=== PATIENT | female | born 1970 | race American Indian/Alaskan Native ===

== ENCOUNTER 2018-12-23 19:26 | Emergency (ER) | payer SELFPAY ==
[2018-12-23 21:02] LABS: Basophils % (Auto) 0.7 % (0.0-1.8); Eosinophils # (Auto) 0.5 K/mm3 (0.0-0.4); Eosinophils % (Auto) 8.2 % (0.0-4.3); Hematocrit 38.4 % (30.3-42.9); Hemoglobin 11.8 gm/dl (10.1-14.3); Lymphocytes # (Auto) 2.7 K/mm3 (1.2-5.4); Lymphocytes % (Auto) 42.3 % (13.4-35.0); Mean Corpuscular HGB Conc 31 % (30-34); Mean Corpuscular Volume 77 fl (79-97); Monocytes # (Auto) 0.4 K/mm3 (0.0-0.8); Monocytes % (Auto) 6.1 % (0.0-7.3); Platelet Count 301 K/mm3 (140-440); Red Blood Count 5.01 M/mm3 (3.65-5.03); Red Cell Distribution Width 18.9 % (13.2-15.2)
[2018-12-23 21:15] VITALS: BP 176/104
[2018-12-23] MEDS ORDERED: DELTASONE PO STA (21:16)
[2018-12-23] MEDS ORDERED: DUONEB *Not for PRN Use IH STA (21:16)
[2018-12-23] MEDS ORDERED: TYLENOL/CODEINE PO STA (21:16)
[2018-12-23 21:22] LABS: BUN/Creatinine Ratio 6; Blood Urea Nitrogen 5 mg/dL (7-17); Calcium 8.7 mg/dL (8.4-10.2); Hemolysis Index 53
[2018-12-23] MEDS ORDERED: ZOFRAN ODT PO ONE (22:52)
[2018-12-23] MEDS ORDERED: ZOFRAN ODT ONE (22:55)
--- NOTE | 2018-12-24 00:21 | XRay Report ---
CHEST 2 VIEWS INDICATION / CLINICAL INFORMATION: SOB, WEAKNESS, PRODUCTIVE COUGH. COMPARISON: None available. FINDINGS: SUPPORT DEVICES: None. HEART / MEDIASTINUM: No significant abnormality. LUNGS / PLEURA: No significant pulmonary or pleural abnormality. No pneumothorax. ADDITIONAL FINDINGS: No significant additional findings. IMPRESSION: 1. No acute findings. Signer Name: Reginaldo Ordonez MD Signed: 12/24/2018 12:17 AM Workstation Name: [id number]
--- NOTE | 2018-12-24 00:58 | Emergency Department Report ---
ED General Adult HPI - General Chief complaint: Dyspnea/Respdistress Stated complaint: SOB/COUGH Time Seen by Provider: 12/23/18 20:15 Source: patient Mode of arrival: Ambulatory Limitations: No Limitations - History of Present Illness -: Gradual, days(s) (2) Location: chest Radiation: non-radiation Severity scale (0 -10): 5 Quality: aching Consistency: constant Improves with: none Worsens with: none Associated Symptoms: cough, malaise. denies: confusion, chest pain, diaphoresis, loss of appetite, nausea/vomiting, rash, seizure, syncope, weakness Treatments Prior to Arrival: none - Related Data Home Medications Medication Instructions Recorded Confirmed Last Taken ALPRAZolam [Xanax TAB] 1 mg PO TID PRN 02/14/16 12/23/18 1 Day Ago ~02/13/16 Citalopram [Celexa] 40 mg PO DAILY 02/14/16 12/23/18 1 Day Ago ~02/13/16 Insulin Glargine [Lantus VIAL] 32 unit SUB-Q QHS 02/14/16 12/23/18 1 Day Ago ~02/13/16 Omeprazole Magnesium [PriLOSEC Otc] 40 mg PO DAILY 02/14/16 12/23/18 1 Day Ago ~02/13/16 amLODIPine [Norvasc] 10 mg PO DAILY 02/14/16 12/23/18 1 Day Ago ~02/13/16 hydrALAZINE [Apresoline TAB] 25 mg PO BID 02/14/16 12/23/18 1 Day Ago ~02/13/16 hydroCHLOROthiazide [HCTZ] 25 mg PO QDAY 02/14/16 12/23/18 1 Day Ago ~02/13/16 Carvedilol [Coreg] 0.625 mg PO DAILY 12/23/18 12/23/18 Unknown Linagliptin [Tradjenta] 5 mg PO QDAY 12/23/18 12/23/18 Unknown Previous Rx's Medication Instructions Recorded Last Taken Type ALBUTEROL Inhaler (OR & NICU) 2 puff IH QID PRN #1 inhalation 12/24/18 Unknown Rx [ProAir HFA Inhaler] Azithromycin [Zithromax] 500 mg PO QDAY #5 tablet 12/24/18 Unknown Rx guaiFENesin/CODEINE [Robitussin AC] 5 ml PO Q6H PRN #120 ml 12/24/18 Unknown Rx predniSONE [Deltasone] 50 mg PO QDAY #5 tab 12/24/18 Unknown Rx Allergies Allergy/AdvReac Type Severity Reaction Status Date / Time No Known Allergies Allergy Unverified 11/27/13 13:05 ED Review of Systems ROS: Stated complaint: SOB/COUGH Other details as noted in HPI Comment: All other systems reviewed and negative ED Past Medical Hx - Past Medical History Previous Medical History?: Yes Hx Hypertension: Yes Hx Congestive Heart Failure: No Hx Diabetes: Yes Hx GERD: Yes Hx Seizures: Yes Hx Psychiatric Treatment: Yes (anxiety/depression) Hx Asthma: No Hx COPD: No Hx HIV: No Additional medical history: peptic ulcer - Surgical History Past Surgical History?: Yes Additional Surgical History: c section x 1 - Social History Smoking Status: Never Smoker Substance Use Type: None - Medications Home Medications: Home Medications Medication Instructions Recorded Confirmed Last Taken Type ALPRAZolam [Xanax TAB] 1 mg PO TID PRN 02/14/16 12/23/18 1 Day Ago History ~02/13/16 Citalopram [Celexa] 40 mg PO DAILY 02/14/16 12/23/18 1 Day Ago History ~02/13/16 Insulin Glargine [Lantus VIAL] 32 unit SUB-Q QHS 02/14/16 12/23/18 1 Day Ago History ~02/13/16 Omeprazole Magnesium [PriLOSEC Otc] 40 mg PO DAILY 02/14/16 12/23/18 1 Day Ago History ~02/13/16 amLODIPine [Norvasc] 10 mg PO DAILY 02/14/16 12/23/18 1 Day Ago History ~02/13/16 hydrALAZINE [Apresoline TAB] 25 mg PO BID 02/14/16 12/23/18 1 Day Ago History ~02/13/16 hydroCHLOROthiazide [HCTZ] 25 mg PO QDAY 02/14/16 12/23/18 1 Day Ago History ~02/13/16 Carvedilol [Coreg] 0.625 mg PO DAILY 12/23/18 12/23/18 Unknown History Linagliptin [Tradjenta] 5 mg PO QDAY 12/23/18 12/23/18 Unknown History ALBUTEROL Inhaler (OR & NICU) 2 puff IH QID PRN #1 inhalation 12/24/18 Unknown Rx [ProAir HFA Inhaler] Azithromycin [Zithromax] 500 mg PO QDAY #5 tablet 12/24/18 Unknown Rx guaiFENesin/CODEINE [Robitussin AC] 5 ml PO Q6H PRN #120 ml 12/24/18 Unknown Rx predniSONE [Deltasone] 50 mg PO QDAY #5 tab 12/24/18 Unknown Rx ED Physical Exam - General Limitations: No Limitations General appearance: alert, in no apparent distress - Head Head exam: Present: atraumatic, normocephalic - Eye Eye exam: Present: normal appearance - ENT ENT exam: Present: mucous membranes moist - Neck Neck exam: Present: normal inspection - Respiratory Respiratory exam: Present: normal lung sounds bilaterally, rhonchi. Absent: respiratory distress - Cardiovascular Cardiovascular Exam: Present: regular rate, normal rhythm. Absent: tachycardia, irregular rhythm, systolic murmur, diastolic murmur, rubs, gallop - GI/Abdominal GI/Abdominal exam: Present: soft, normal bowel sounds. Absent: tenderness, guarding, rebound, hyperactive bowel sounds, hypoactive bowel sounds - Bi-manual exam: Absent: normal bi-manual exam - Extremities Exam Extremities exam: Present: normal inspection, full ROM, normal capillary refill. Absent: pedal edema, joint swelling - Back Exam Back exam: Present: normal inspection - Neurological Exam Neurological exam: Present: alert, oriented X3 - Psychiatric Psychiatric exam: Present: normal affect, normal mood - Skin Skin exam: Present: warm, dry, intact, normal color. Absent: rash ED Course Vital Signs 12/23/18 12/23/18 12/23/18 19:45 21:14 21:28 Temperature 98.9 F Pulse Rate 95 H Pulse Rate [ Bilateral] Respiratory 16 18 Rate Respiratory Rate [Bilateral ] Blood Pressure 193/118 Blood Pressure 176/104 [Left] O2 Sat by Pulse 96 Oximetry 12/23/18 21:49 Temperature Pulse Rate Pulse Rate [ 70 Bilateral] Respiratory Rate Respiratory 20 Rate [Bilateral ] Blood Pressure Blood Pressure [Left] O2 Sat by Pulse Oximetry ED Medical Decision Making - Lab Data Result diagrams: 12/23/18 20:43 12/23/18 20:43 Critical care attestation.: If time is entered above; I have spent that time in minutes in the direct care of this critically ill patient, excluding procedure time. ED Disposition Clinical Impression: Fever, Cough, Normal chest x-ray Is pt being admited?: No Does the pt Need Aspirin: No Condition: Stable Instructions: Cold Symptoms (ED), Acute Cough (ED), Fever in Adults (ED) Referrals: PRIMARY CARE, [Primary Care Provider] - 3-[address] [facility] [Provider Group] - 3-5 Days
== END 2018-12-24 01:20 | disposition home or self-care (01) ==
LOC: ED 19:26
DX: R50.9 Fever, unspecified (principal); R05 Cough; R07.89 Other chest pain; I10 Essential (primary) hypertension; E11.9 Type 2 diabetes mellitus without complications; K21.9 Gastro-esophageal reflux disease without esophagitis; F41.9 Anxiety disorder, unspecified; F32.9 Major depressive disorder, single episode, unspecified; Z79.4 Long term (current) use of insulin; Z79.899 Other long term (current) drug therapy
CPT/HCPCS: 36415; 71046; 80048; 85025; 93005; 93010; 94640; 99285; J7512; 94644; Q0162

== ENCOUNTER 2019-12-12 04:21 | Inpatient (IN) | payer OTHER, SELFPAY ==
--- NOTE | 2019-12-12 05:28 | XRay Report ---
CHEST 2 VIEWS INDICATION / CLINICAL INFORMATION: cough/sob. COMPARISON: 12/23/2018 FINDINGS: SUPPORT DEVICES: None. HEART / MEDIASTINUM: No significant abnormality. LUNGS / PLEURA: Borderline interstitial pulmonary edema. No definite area of pneumonia is noted. No p leural effusion. No pneumothorax. ADDITIONAL FINDINGS: No significant additional findings. IMPRESSION: 1. Borderline interstitial pulmonary edema.. Signer Name: Yani Triplett MD Signed: 12/12/2019 5:24 AM Workstation Name: [id number]
[2019-12-12 05:45] LABS: Basophils # (Auto) 0.1 K/mm3 (0.0-0.1); Basophils % (Auto) 1.2 % (0.0-1.8); Eosinophils # (Auto) 0.2 K/mm3 (0.0-0.4); Eosinophils % (Auto) 2.4 % (0.0-4.3); Hematocrit 36.5 % (30.3-42.9); Hemoglobin 11.5 gm/dl (10.1-14.3); Lymphocytes % (Auto) 25.6 % (13.4-35.0); Mean Corpuscular HGB Conc 32 % (30-34); Mean Corpuscular Volume 80 fl (79-97); Monocytes # (Auto) 0.5 K/mm3 (0.0-0.8); Platelet Count 324 K/mm3 (140-440); Red Blood Count 4.57 M/mm3 (3.65-5.03); Red Cell Distribution Width 17.2 % (13.2-15.2)
[2019-12-12 05:54] LABS: Bilirubin,Urine NEG (Negative); Blood,Urine NEG (Negative); Color,Urine Yellow (Yellow); Mucus,Urine FEW /HPF; Protein,Urine <15 mg/dL mg/dL (Negative); Urobilinogen,Urine < 2.0 mg/dL (<2.0)
[2019-12-12 06:02] LABS: Alanine Aminotransferase 12 units/L (7-56); Albumin 4.3 g/dL (3.9-5); BUN/Creatinine Ratio 10; Blood Urea Nitrogen 8 mg/dL (7-17); Calcium 9.3 mg/dL (8.4-10.2); Hemolysis Index 3
[2019-12-12] MEDS ORDERED: ONDANSETRON 4 MG/2 ML INJ IM ONE (08:25)
[2019-12-12] MEDS ORDERED: fentaNYL 100 MCG/2 ML INJ IM ONE (08:25)
[2019-12-12] MEDS ORDERED: KETOROLAC 60 MG/2 ML INJ IM ONE (08:27)
[2019-12-12] MEDS ORDERED: cloNIDine 0.2 MG TAB PO ONE (08:30)
--- NOTE | 2019-12-12 08:32 | Emergency Department Report ---
HPI - General Chief Complaint: Dyspnea/Respdistress Time Seen by Provider: 12/12/19 08:10 - HPI HPI: Room 22 The patient is a 49-year-old female present with a chief complaint of sciatic nerve pain. The patient states she was diagnosed with sciatica in October. The patient states she does not have insurance that she has not yet been able to follow-up with a specialist. Patient presents with pain in the left lower extremity consistent with her sciatic pain. Patient denies any recent trauma to the left leg but states 5 days ago she accidentally bumped her head on her headboard and has had a headache ever since. Patient denies history of fever. Patient admits to occasional cough for the past 2 days productive of looney sputum. ED Past Medical Hx - Past Medical History Previous Medical History?: Yes Hx Hypertension: Yes Hx Diabetes: Yes Hx GERD: Yes Hx Seizures: Yes Hx Psychiatric Treatment: Yes (anxiety/depression) Additional medical history: peptic ulcer - Surgical History Past Surgical History?: Yes Additional Surgical History: c section x 1, partial hysterectomy - Family History Family history: no significant - Social History Smoking Status: Never Smoker Substance Use Type: Alcohol (Occasional), Marijuana - Medications Home Medications: Home Medications Medication Instructions Recorded Confirmed Last Taken Type ALPRAZolam [Xanax TAB] 1 mg PO TID PRN 02/14/16 12/23/18 1 Day Ago History ~02/13/16 Citalopram [Celexa] 40 mg PO DAILY 02/14/16 12/23/18 1 Day Ago History ~02/13/16 Insulin Glargine [Lantus VIAL] 32 unit SUB-Q QHS 02/14/16 12/23/18 1 Day Ago History ~02/13/16 Omeprazole Magnesium [PriLOSEC Otc] 40 mg PO DAILY 02/14/16 12/23/18 1 Day Ago History ~02/13/16 amLODIPine 10 mg PO DAILY 02/14/16 12/23/18 1 Day Ago History ~02/13/16 hydrALAZINE [Apresoline TAB] 25 mg PO BID 02/14/16 12/23/18 1 Day Ago History ~02/13/16 hydroCHLOROthiazide [HCTZ] 25 mg PO QDAY 02/14/16 12/23/18 1 Day Ago History ~02/13/16 Linagliptin [Tradjenta] 5 mg PO QDAY 12/23/18 12/23/18 Unknown History carvediloL [Coreg] 0.625 mg PO DAILY 12/23/18 12/23/18 Unknown History Albuterol Mdi (or & Nicu Only) 2 puff IH QID PRN #1 inhalation 12/24/18 Unknown Rx [ProAir HFA Inhaler] Azithromycin [Zithromax] 500 mg PO QDAY #5 tablet 12/24/18 Unknown Rx guaiFENesin/CODEINE [Robitussin AC] 5 ml PO Q6H PRN #120 ml 12/24/18 Unknown Rx predniSONE [Deltasone] 50 mg PO QDAY #5 tab 12/24/18 Unknown Rx ED Review of Systems ROS: Stated complaint: SOB/LEFT SIDE FLANK PAIN/HEADACHE Other details as noted in HPI Constitutional: denies: fever Respiratory: cough Endocrine: no symptoms reported Neurological: other (Sciatic nerve pain) Physical Exam - Physical Exam Vital Signs: Vital Signs 12/12/19 12/12/19 04:37 04:43 Temperature 98.4 F Pulse Rate 101 H 99 H Respiratory 20 20 Rate Blood Pressure 192/103 O2 Sat by Pulse 91 95 Oximetry Physical Exam: GENERAL: The patient is well-developed well-nourished female lying on stretcher not appearing to be in acute distress. [] HEENT: Normocephalic. Atraumatic. Extraocular motions are intact. Patient has moist mucous membranes. NECK: Supple. Trachea midline CHEST/LUNGS: Clear to auscultation. There is no respiratory distress noted. HEART/CARDIOVASCULAR: Regular. There is no tachycardia. There is no gallop rub or murmur. Left foot normothermic, DP present ABDOMEN: Abdomen is soft, nontender. Patient has normal bowel sounds. There is no abdominal distention. SKIN: There is no rash. There is no edema. There is no diaphoresis. NEURO: The patient is awake, alert, and oriented. The patient is cooperative. The patient has no focal neurologic deficits. The patient has normal speech. Cranial nerves II through XII grossly intact MUSCULOSKELETAL: There is no evidence of acute injury. ED Course Vital Signs 12/12/19 12/12/19 04:37 04:43 Temperature 98.4 F Pulse Rate 101 H 99 H Respiratory 20 20 Rate Blood Pressure 192/103 O2 Sat by Pulse 91 95 Oximetry ED Medical Decision Making - Lab Data Result diagrams: 12/12/19 05:22 12/12/19 05:22 Laboratory Tests 12/12/19 12/12/19 12/12/19 04:42 05:22 05:22 WBC 7.7 RBC 4.57 Hgb 11.5 Hct 36.5 MCV 80 MCH 25 L MCHC 32 RDW 17.2 H Plt Count 324 Lymph % (Auto) 25.6 Norman % (Auto) 7.0 Eos % (Auto) 2.4 Baso % (Auto) 1.2 Lymph # 2.0 Norman # 0.5 Eos # 0.2 Baso # 0.1 Seg Neutrophils % 63.8 Seg Neutrophils # 4.9 Sodium 136 L Potassium 4.0 Chloride 101.3 Carbon Dioxide 21 L Anion Gap 18 BUN 8 Creatinine 0.8 Estimated GFR > 60 BUN/Creatinine Ratio 10 Glucose 248 H Calcium 9.3 Total Bilirubin 0.20 AST 14 ALT 12 Alkaline Phosphatase 81 NT-Pro-B Natriuret Pep Total Protein 7.6 Albumin 4.3 Albumin/Globulin Ratio 1.3 Urine Color Yellow Urine Turbidity Clear Urine pH 6.0 Ur Specific [place] 1.018 Urine Protein <15 mg/dl Urine Glucose (UA) >=500 Urine Ketones Neg Urine Blood Neg Urine Nitrite Neg Urine Bilirubin Neg Urine Urobilinogen < 2.0 Ur Leukocyte Esterase Neg Urine WBC (Auto) 1.0 Urine RBC (Auto) 2.0 U Epithel Cells (Auto) 9.0 Urine Mucus Few 12/12/19 05:22 WBC RBC Hgb Hct MCV MCH MCHC RDW Plt Count Lymph % (Auto) Norman % (Auto) Eos % (Auto) Baso % (Auto) Lymph # Norman # Eos # Baso # Seg Neutrophils % Seg Neutrophils # Sodium Potassium Chloride Carbon Dioxide Anion Gap BUN Creatinine Estimated GFR BUN/Creatinine Ratio Glucose Calcium Total Bilirubin AST ALT Alkaline Phosphatase NT-Pro-B Natriuret Pep 1225 H Total Protein Albumin Albumin/Globulin Ratio Urine Color Urine Turbidity Urine pH Ur Specific [place] Urine Protein Urine Glucose (UA) Urine Ketones Urine Blood Urine Nitrite Urine Bilirubin Urine Urobilinogen Ur Leukocyte Esterase Urine WBC (Auto) Urine RBC (Auto) U Epithel Cells (Auto) Urine Mucus - Radiology Data Radiology results: report reviewed (Chest x-ray, CT head), image reviewed (Chest x-ray, CT head) interpreted by me: Chest x-ray-no focal infiltrates, no pneumothorax, no foreign body Findings [address] [address] XRay Report Signed Patient: RUDY MEZA MR#: [id number] : 1970 Acct:[id number] Age/Sex: 49 / F ADM Date: 12/12/19 Loc: ED Attending Dr: Ordering Physician: MARTA LLAMAS MD Date of Service: 12/12/19 Procedure(s): XR chest routine 2V Accession Number(s): [id number] cc: MARTA LLAMAS MD Fluoro Time In Minutes: CHEST 2 VIEWS INDICATION / CLINICAL INFORMATION: cough/sob. COMPARISON: 12/23/2018 FINDINGS: SUPPORT DEVICES: None. HEART / ME DIASTINUM: No significant abnormality. LUNGS / PLEURA: Borderline interstitial pulmonary edema. No definite area of pneumonia is noted. No pleural effusion. No pneumothorax. ADDITIONAL FINDINGS: No significant additional findings. IMPRESSION: 1. Borderline interstitial pulmonary edema.. Signer Name: Yani Triplett MD Signed: 12/12/2019 5:24 AM Workstation Name: [id number] Transcribed By: JR Dictated By: Yani Triplett MD Electronically Authenticated By: Yani Triplett MD Signed Date/Time: 12/12/19523 DD/ 0 TD/TT: Findings [address] [address] Cat Scan Report Signed Patient: RUDY MEZA MR#: [id number] : 1970 Acct:[id number] Age/Sex: 49 / F ADM Date: 12/12/19 Loc: ED Attending Dr: Ordering Physician: ALEXANDRA ROMO MD Date of Service: 12/12/19 Procedure(s): CT head/brain wo con Accession Number(s): [id number] cc: ALEXANDRA ROMO MD NONENHANCED CT SCAN OF THE HEAD: INDICATION / CLINICAL INFORMATION: 49 years Female; Headache after striking head 5 days ago. TECHNIQUE: Routine CT head without contrast. All CT scans at this location are performed using CT dose reduction for ALARA by means of automated exposure control. COMPARISON: CT scan of the head from 02/14/2016 FINDINGS: BRAIN / INTRACRANIAL CONTENTS: No intracranial sequela from the trauma; no scalp hematoma; no air-fluid level in the visualized portions of the paranasal sinuses. No acute hemorrhage, mass effect, midline shift, hydrocephalus, or acute, large territorial infarct. No chronic infarct or focal atrophy. Normal brain volume and ventricular/sulcal size for age. No significant white matter abnormality. CRANIOCERVICAL JUNCTION: No significant abnormality. ORBITS: No significant abnormality of visualized orbits. SINUSES / MASTOIDS: No significant abnormality of the visualized paranasal sinuses or mastoid air cells. ADDITIONAL FINDINGS: Pituitary gland is not enlarged but has inhomogeneous CT attenuation. However, this finding remains unchanged since the previous CT scan from 02/14/2016. Please correlate pituitary functions. IMPRESSION: No intracranial sequela from the trauma; no acute parenchymal lesion CT findings remain unchanged since 02/14/2016 Signer Name: Komal Crawford MD Signed: 12/12/2019 9:26 AM Workstation Name: [id number] Transcribed By: BS Dictated By: Komal Nath MD Electronically Authenticated By: Komal Nath MD Signed Date/Time: 12/12/19925 DD/ 7 TD/TT: - Differential Diagnosis Sciatica, pneumonia, CHF, bronchitis, closed head injury, cerebral contusio Critical care attestation.: If time is entered above; I have spent that time in minutes in the direct care of this critically ill patient, excluding procedure time. ED Disposition Clinical Impression: Shortness of breath, Sciatica, Elevated brain natriuretic peptide (BNP) level Disposition: OP ADMIT IP TO THIS HOSP Is pt being admited?: Yes Does the pt Need Aspirin: Yes Condition: Fair Referrals: PRIMARY CARE, [Primary Care Provider] - 3-5 Days Time of Disposition: 10:12 (Hospitalist notified (dR [place]))
[2019-12-12] MEDS ORDERED: IPRATROPIUM/ALBUTEROL SULFATE 3 ML AMPUL.NEB IH ONE ×2 (09:07→09:10)
--- NOTE | 2019-12-12 09:31 | Cat Scan Report ---
NONENHANCED CT SCAN OF THE HEAD: INDICATION / CLINICAL INFORMATION: 49 years Female; Headache after striking head 5 days ago. TECHNIQUE: Routine CT head without contrast. All CT scans at this location are performed using CT dos e reduction for ALARA by means of automated exposure control. COMPARISON: CT scan of the head from 02/14/2016 FINDINGS: BRAIN / INTRACRANIAL CONTENTS: No intracranial sequela from the trauma; no scalp hematoma; no air-flu id level in the visualized portions of the paranasal sinuses. No acute hemorrhage, mass effect, midline shift, hydrocephalus, or acute, large territorial infarct. No chronic infarct or focal atrophy. Normal brain volume and ventricular/sulcal size for age. No sig nificant white matter abnormality. CRANIOCERVICAL JUNCTION: No significant abnormality. ORBITS: No significant abnormality of visualized orbits. SINUSES / MASTOIDS: No significant abnormality of the visualized paranasal sinuses or mastoid air deya ls. ADDITIONAL FINDINGS: Pituitary gland is not enlarged but has inhomogeneous CT attenuation. However, t his finding remains unchanged since the previous CT scan from 02/14/2016. Please correlate pituitary functions. IMPRESSION: No intracranial sequela from the trauma; no acute parenchymal lesion CT findings remain unchanged since 02/14/2016 Signer Name: Komal Crawford MD Signed: 12/12/2019 9:26 AM Workstation Name: [id number]
--- NOTE | 2019-12-12 10:55 | History and Physical Report ---
<CRISTIAN ARGUELLO - Last Filed: 12/12/19 16:11> History of Present Illness Date of examination: 12/12/19 Chief complaint: The patient is a 49-year-old female with history of hypertension, CHF, and diabetes 2. She reports sciatic nerve pain, shortness of breath, and chest pain. The Patient presents also present with lower leg edema, worse on left left than right leg. Patient denies any recent trauma to the left leg but states 5 days ago she accidentally bumped her head on her headboard and has had a headache ever since. Patient denies history of fever. Patient admits to occasional cough for the past 2 days productive of looney sputum. ED work up shows WBC 7.7, hemoglobin 11.5, NA 136, Potassium 4.0 Glucose 248. BNP 1225 CT of the head-No acute finding Chest [id number] Interstitial pulmonary edema Past History Past Medical History: diabetes, hypertension Past Surgical History: No surgical history Social history: alcohol abuse (occasional drinker) Medications and Allergies Allergies Allergy/AdvReac Type Severity Reaction Status Date / Time No Known Allergies Allergy Unverified 11/27/13 13:05 Home Medications Medication Instructions Recorded Confirmed Last Taken Type ALPRAZolam [Xanax TAB] 2 mg PO BID 02/14/16 12/12/19 12/11/19 History Citalopram [Celexa] 40 mg PO DAILY 02/14/16 12/12/19 12/11/19 History Insulin Glargine [Lantus VIAL] 32 unit SUB-Q QHS 02/14/16 12/12/19 12/05/19 History Omeprazole Magnesium [PriLOSEC Otc] 40 mg PO DAILY 02/14/16 12/12/19 12/11/19 History amLODIPine 10 mg PO DAILY 02/14/16 12/12/19 12/11/19 History hydrALAZINE [Apresoline TAB] 25 mg PO BID 02/14/16 12/12/19 12/11/19 History hydroCHLOROthiazide [HCTZ] 25 mg PO QDAY 02/14/16 12/12/19 12/11/19 History carvediloL [Coreg] 6.25 mg PO DAILY 12/23/18 12/12/19 12/11/19 History Metoprolol [Lopressor] 25 mg PO DAILY 12/12/19 12/12/19 12/11/19 History metFORMIN [Glucophage] 500 mg PO BID 12/12/19 12/12/19 12/11/19 History Review of Systems Cardiovascular: chest pain, edema, shortness of breath Respiratory: cough, shortness of breath Musculoskeletal: arthritis Exam - Constitutional Vitals: Temp Pulse Resp BP Pulse Ox 98.4 F 92 H 29 H 195/108 93 12/12/19 04:37 12/12/19 08:45 12/12/19 08:30 12/12/19 10:00 12/12/19 10:00 General appearance: Present: no acute distress (shortness of breath, low back pain and leg pain), mild distress, well-nourished - EENT Eyes: Present: PERRL ENT: hearing intact, clear oral mucosa - Neck Neck: Present: supple, normal ROM - Respiratory Respiratory effort: normal Respiratory: bilateral: CTA - Cardiovascular Heart rate: 82 Heart Sounds: Present: S1 & S2. Absent: rub, click - Extremities Extremities: pulses symmetrical, abnormal (bilateral leg [id number] on left leg than right) Peripheral Pulses: within normal limits - Abdominal General gastrointestinal: Present: soft, non-tender, non-distended, normal bowel sounds Female genitourinary: Present: normal - Integumentary Integumentary: Present: clear, warm, dry - Musculoskeletal Musculoskeletal: gait normal, strength equal bilaterally - Psychiatric Psychiatric: appropriate mood/affect, intact judgment & insight - Neurologic Neurologic: CNII-XII intact, moves all extremities - Allied Health Allied health notes reviewed: nursing Results - Labs CBC & Chem 7: 12/12/19 05:22 12/12/19 05:22 Labs: Laboratory Last Values WBC 7.7 K/mm3 (4.5-11.0) 12/12/19 05:22 RBC 4.57 M/mm3 (3.65-5.03) 12/12/19 05:22 Hgb 11.5 gm/dl (10.1-14.3) 12/12/19 05:22 Hct 36.5 % (30.3-42.9) 12/12/19 05:22 MCV 80 fl (79-97) 12/12/19 05:22 MCH 25 pg (28-32) L 12/12/19 05:22 MCHC 32 % (30-34) 12/12/19 05:22 RDW 17.2 % (13.2-15.2) H 12/12/19 05:22 Plt Count 324 K/mm3 (140-440) 12/12/19 05:22 Lymph % (Auto) 25.6 % (13.4-35.0) 12/12/19 05:22 Stark % (Auto) 7.0 % (0.0-7.3) 12/12/19 05:22 Eos % (Auto) 2.4 % (0.0-4.3) 12/12/19 05:22 Baso % (Auto) 1.2 % (0.0-1.8) 12/12/19 05:22 Lymph # 2.0 K/mm3 (1.2-5.4) 12/12/19 05:22 Stark # 0.5 K/mm3 (0.0-0.8) 12/12/19 05:22 Eos # 0.2 K/mm3 (0.0-0.4) 12/12/19 05:22 Baso # 0.1 K/mm3 (0.0-0.1) 12/12/19 05:22 Seg Neutrophils % 63.8 % (40.0-70.0) 12/12/19 05:22 Seg Neutrophils # 4.9 K/mm3 (1.8-7.7) 12/12/19 05:22 Sodium 136 mmol/L (137-145) L 12/12/19 05:22 Potassium 4.0 mmol/L (3.6-5.0) 12/12/19 05:22 Chloride 101.3 mmol/L (98-107) 12/12/19 05:22 Carbon Dioxide 21 mmol/L (22-30) L 12/12/19 05:22 Anion Gap 18 mmol/L 12/12/19 05:22 BUN 8 mg/dL (7-17) 12/12/19 05:22 Creatinine 0.8 mg/dL (0.6-1.2) 12/12/19 05:22 Estimated GFR > 60 ml/min 12/12/19 05:22 BUN/Creatinine Ratio 10 % 12/12/19 05:22 Glucose 248 mg/dL (65-100) H 12/12/19 05:22 Calcium 9.3 mg/dL (8.4-10.2) 12/12/19 05:22 Total Bilirubin 0.20 mg/dL (0.1-1.2) 12/12/19 05:22 AST 14 units/L (5-40) 12/12/19 05:22 ALT 12 units/L (7-56) 12/12/19 05:22 Alkaline Phosphatase 81 units/L (35-129) 12/12/19 05:22 NT-Pro-B Natriuret Pep 1225 pg/mL (0-900) H 12/12/19 05:22 Total Protein 7.6 g/dL (6.3-8.2) 12/12/19 05:22 Albumin 4.3 g/dL (3.9-5) 12/12/19 05:22 Albumin/Globulin Ratio 1.3 % 12/12/19 05:22 Urine Color Yellow (Yellow) 12/12/19 04:42 Urine Turbidity Clear (Clear) 12/12/19 04:42 Urine pH 6.0 (5.0-7.0) 12/12/19 04:42 Ur Specific Garvin 1.018 (1.003-1.030) 12/12/19 04:42 Urine Protein <15 mg/dl mg/dL (Negative) 12/12/19 04:42 Urine Glucose (UA) >=500 mg/dL (Negative) 12/12/19 04:42 Urine Ketones Neg mg/dL (Negative) 12/12/19 04:42 Urine Blood Neg (Negative) 12/12/19 04:42 Urine Nitrite Neg (Negative) 12/12/19 04:42 Urine Bilirubin Neg (Negative) 12/12/19 04:42 Urine Urobilinogen < 2.0 mg/dL (<2.0) 12/12/19 04:42 Ur Leukocyte Esterase Neg (Negative) 12/12/19 04:42 Urine WBC (Auto) 1.0 /HPF (0.0-6.0) 12/12/19 04:42 Urine RBC (Auto) 2.0 /HPF (0.0-6.0) 12/12/19 04:42 U Epithel Cells (Auto) 9.0 /HPF (0-13.0) 12/12/19 04:42 Urine Mucus Few /HPF 12/12/19 04:42 Assessment and Plan - Patient Problems (1) Elevated brain natriuretic peptide (BNP) level Current Visit: Yes Status: Acute Plan to address problem: CHF Start cardioprotective measure-diuretic, subl. nitrites, ASA, statin, and oxygen supplement if needed Cardiology consult-f/u with recomendation [id number] interstatial pulmonary edema ECHO-f/u with result (2) Sciatica Current Visit: Yes Status: Acute Plan to address problem: Pain management (3) Shortness of breath Current Visit: Yes Status: Acute Plan to address problem: Oxygen supplement PRN D-dimer-f/u with result Etcher Apprentice consult if needed (4) Chest pain Current Visit: No Status: Acute Plan to address problem: ECHO Pain management Gate Manager consult (5) Diabetes 1.5, managed as type 2 Current Visit: No Status: Chronic Plan to address problem: Monitor blood sugar with SSI [id number] with result Resume home anti hyperglycemic (6) Dyslipidemia Current Visit: No Status: Chronic Plan to address problem: Resume home statin <PRAVEENA PEGUERO R - Last Filed: 12/12/19 16:57> History of Present Illness Date of admission: 12/12/19 10:11 Chief complaint: c/c Cough, sob and sciatica pain Medications and Allergies Active Meds: Active Medications Albuterol (Proventil) 2.5 mg IH Q4HRT PRN PRN Reason: Shortness Of Breath Alprazolam (Xanax) 1 mg PO TID PRN PRN Reason: Anxiety Amlodipine Besylate (Amlodipine) 10 mg PO DAILY [facility] Carvedilol (Coreg) 6.25 mg PO BID [facility] Last Admin: 12/12/19 13:46 Dose: 6.25 mg Documented by: Citalopram Hydrobromide (Celexa) 40 mg PO DAILY [facility] Furosemide (Lasix) 40 mg IV 0600,1800 [facility] Hydralazine HCl (Apresoline) 25 mg PO BID [facility] Insulin Glargine (Lantus) 25 units SUB-Q QHS [facility] Insulin Human Regular (Humulin R) 0 unit SUB-Q ACHS [facility]; Protocol Linagliptin (Tradjenta) 5 mg PO QDAY [facility] Oxycodone/Acetaminophen (Percocet 5/325) 1 tab PO Q6H PRN PRN Reason: Pain, Moderate (4-6) Last Admin: 12/12/19 15:18 Dose: 1 tab Documented by: Pantoprazole Sodium (Protonix) 40 mg PO DAILY [facility] Pseudoephedrine/Acetam/Chlorphenir (Robitussin Ac) 5 ml PO Q6H PRN PRN Reason: Cough Exam - Constitutional Vitals: Temp Pulse Resp BP Pulse Ox 97.7 F 86 18 164/92 97 12/12/19 14:00 12/12/19 14:00 12/12/19 14:00 12/12/19 14:00 12/12/19 14:00 Results - Labs CBC & Chem 7: 12/12/19 05:22 12/12/19 05:22 Labs: Laboratory Last Values WBC 7.7 K/mm3 (4.5-11.0) 12/12/19 05:22 RBC 4.57 M/mm3 (3.65-5.03) 12/12/19 05:22 Hgb 11.5 gm/dl (10.1-14.3) 12/12/19 05:22 Hct 36.5 % (30.3-42.9) 12/12/19 05:22 MCV 80 fl (79-97) 12/12/19 05:22 MCH 25 pg (28-32) L 12/12/19 05:22 MCHC 32 % (30-34) 12/12/19 05:22 RDW 17.2 % (13.2-15.2) H 12/12/19 05:22 Plt Count 324 K/mm3 (140-440) 12/12/19 05:22 Lymph % (Auto) 25.6 % (13.4-35.0) 12/12/19 05:22 Stark % (Auto) 7.0 % (0.0-7.3) 12/12/19 05:22 Eos % (Auto) 2.4 % (0.0-4.3) 12/12/19 05:22 Baso % (Auto) 1.2 % (0.0-1.8) 12/12/19 05:22 Lymph # 2.0 K/mm3 (1.2-5.4) 12/12/19 05:22 Stark # 0.5 K/mm3 (0.0-0.8) 12/12/19 05:22 Eos # 0.2 K/mm3 (0.0-0.4) 12/12/19 05:22 Baso # 0.1 K/mm3 (0.0-0.1) 12/12/19 05:22 Seg Neutrophils % 63.8 % (40.0-70.0) 12/12/19 05:22 Seg Neutrophils # 4.9 K/mm3 (1.8-7.7) 12/12/19 05:22 Sodium 136 mmol/L (137-145) L 12/12/19 05:22 Potassium 4.0 mmol/L (3.6-5.0) 12/12/19 05:22 Chloride 101.3 mmol/L (98-107) 12/12/19 05:22 Carbon Dioxide 21 mmol/L (22-30) L 12/12/19 05:22 Anion Gap 18 mmol/L 12/12/19 05:22 BUN 8 mg/dL (7-17) 12/12/19 05:22 Creatinine 0.8 mg/dL (0.6-1.2) 12/12/19 05:22 Estimated GFR > 60 ml/min 12/12/19 05:22 BUN/Creatinine Ratio 10 % 12/12/19 05:22 Glucose 248 mg/dL (65-100) H 12/12/19 05:22 Calcium 9.3 mg/dL (8.4-10.2) 12/12/19 05:22 Total Bilirubin 0.20 mg/dL (0.1-1.2) 12/12/19 05:22 AST 14 units/L (5-40) 12/12/19 05:22 ALT 12 units/L (7-56) 12/12/19 05:22 Alkaline Phosphatase 81 units/L (35-129) 12/12/19 05:22 NT-Pro-B Natriuret Pep 1225 pg/mL (0-900) H 12/12/19 05:22 Total Protein 7.6 g/dL (6.3-8.2) 12/12/19 05:22 Albumin 4.3 g/dL (3.9-5) 12/12/19 05:22 Albumin/Globulin Ratio 1.3 % 12/12/19 05:22 Urine Color Yellow (Yellow) 12/12/19 04:42 Urine Turbidity Clear (Clear) 12/12/19 04:42 Urine pH 6.0 (5.0-7.0) 12/12/19 04:42 Ur Specific Garvin 1.018 (1.003-1.030) 12/12/19 04:42 Urine Protein <15 mg/dl mg/dL (Negative) 12/12/19 04:42 Urine Glucose (UA) >=500 mg/dL (Negative) 12/12/19 04:42 Urine Ketones Neg mg/dL (Negative) 12/12/19 04:42 Urine Blood Neg (Negative) 12/12/19 04:42 Urine Nitrite Neg (Negative) 12/12/19 04:42 Urine Bilirubin Neg (Negative) 12/12/19 04:42 Urine Urobilinogen < 2.0 mg/dL (<2.0) 12/12/19 04:42 Ur Leukocyte Esterase Neg (Negative) 12/12/19 04:42 Urine WBC (Auto) 1.0 /HPF (0.0-6.0) 12/12/19 04:42 Urine RBC (Auto) 2.0 /HPF (0.0-6.0) 12/12/19 04:42 U Epithel Cells (Auto) 9.0 /HPF (0-13.0) 12/12/19 04:42 Urine Mucus Few /HPF 12/12/19 04:42 Rodríguez/IV: Voiding Method Toilet IV Catheter Type [Right INT / Saline Lock Antecubital] Assessment and Plan Assessment and plan: I saw and evaluated the patient. I agree with the findings and the plan of care as documented in the Nurse Practitioner's~note, with the following corrections and additions. Will also r/o COVID 19
[2019-12-12] MEDS ORDERED: ALBUTEROL 2.5 MG/3 ML NEBU IH PRN (11:51)
[2019-12-12] MEDS ORDERED: carvediloL 6.25 MG TAB ONE (13:34)
[2019-12-12] MEDS: carvediloL 6.25 MG TAB PO SCH ×2 (13:46→21:06)
[2019-12-12] MEDS: oxyCODONE /ACETAMINOPHEN 5-325MG TAB PO PRN ×2 (15:18→21:06)
[2019-12-12] MEDS: FUROSEMIDE 40 MG/4 ML INJ IV SCH (17:43)
[2019-12-12] MEDS: ALPRAZolam 1 MG TAB PO PRN ×2 (17:47→21:06)
[2019-12-12] MEDS: INSULIN REGULAR, HUMAN 100 UNIT/ML 3ML VIAL SUB-Q SCH ×2 (18:25→21:05)
[2019-12-12] MEDS: hydrALAZINE 25 MG TAB PO SCH (21:06)
[2019-12-12] MEDS: INSULIN GLARGINE 100 UNITS/ML SUB-Q SCH (21:06)
[2019-12-12] MEDS: guaiFENesin/CODEINE 100-10MG ORAL LIQD 5 ML PO PRN (21:09)
[2019-12-12] MEDS ORDERED: hydrALAZINE 20 MG/1 ML INJ IV PRN (22:36)
[2019-12-12] MEDS ORDERED: MORPHINE 2 MG/1 ML INJ IM ONE ×2 (22:43→22:45)
[2019-12-12] MEDS ORDERED: MORPHINE 2 MG/1 ML INJ IV ONE (22:45)
[2019-12-13] MEDS: oxyCODONE /ACETAMINOPHEN 5-325MG TAB PO PRN ×4 (05:10→23:57)
[2019-12-13] MEDS: FUROSEMIDE 40 MG/4 ML INJ IV SCH ×3 (05:10→18:15)
[2019-12-13] MEDS: ALPRAZolam 1 MG TAB PO PRN ×2 (05:11→20:19)
--- NOTE | 2019-12-13 09:29 | Progress Note ---
<CIERAJERRICATONESYLVIACRISTIAN - Last Filed: 12/13/19 14:27> Assessment and Plan - Patient Problems (1) Elevated brain natriuretic peptide (BNP) level Current Visit: Yes Status: Acute Plan to address problem: CHF Start cardioprotective measure-diuretic, subl. nitrites, ASA, statin, and oxygen supplement if needed Cardiology consult-f/u with recomendation [id number] interstatial pulmonary edema ECHO-f/u with result (2) Sciatica Current Visit: Yes Status: Acute Plan to address problem: Pain management Bilateral leg US r/o dvt (3) Shortness of breath Current Visit: Yes Status: Acute Plan to address problem: patient seen on room air-condition has improved Oxygen supplement PRN Test Center Manager consult ECHO ordered-result pending (4) Chest pain Current Visit: No Status: Acute Plan to address problem: ECHO-f/u with Patient denies cp today-reports left leg pain Pain management Test Center Manager consult Will check us of lower estremity r/u DVT (5) Diabetes 1.5, managed as type 2 Current Visit: No Status: Chronic Plan to address problem: Monitor blood sugar with SSI [id number]/u with result Scheduled lantus 25 units BID (6) Dyslipidemia Current Visit: No Status: Chronic Plan to address problem: Resume home statin Subjective Date of service: 12/13/19 Interval history: Patient seen sitting at bedside. reviewed lab, mar, and V/S Reviewed specialist note and reces Nitrol ointment for pre-and afterload reduction, ASA and iv diuretics. Echocardiogram to assess global and regional left ventricular function. Checked Check TSH level-normal Objective - Constitutional Vitals: Vital Signs - 12hr 12/12/19 23:38 Temperature 98.0 F Pulse Rate 80 Respiratory 20 Rate Blood Pressure 151/102 O2 Sat by Pulse 97 Oximetry General appearance: Present: no acute distress, well-nourished - EENT Eyes: PERRL, EOM intact ENT: hearing intact, clear oral mucosa Ears: bilateral: normal - Neck Neck: supple, normal ROM - Respiratory Respiratory effort: normal Respiratory: bilateral: CTA - Breasts Breasts: normal - Cardiovascular Rhythm: regular Heart Sounds: Present: S1 & S2. Absent: gallop, rub Extremities: pulses intact, No edema, normal color, Full ROM - Gastrointestinal General gastrointestinal: Present: soft, non-tender, non-distended, normal bowel sounds - Genitourinary Female genitourinary: normal - Integumentary Integumentary: clear, warm, dry - Musculoskeletal Musculoskeletal: 1, strength equal bilaterally - Neurologic Neurologic: moves all extremities - Psychiatric Psychiatric: memory intact, appropriate mood/affect, intact judgment & insight - Labs CBC & Chem 7: 12/12/19 05:22 12/12/19 05:22 Labs: Abnormal lab results 12/12/19 12/12/19 12/13/19 Range/Units 18:07 21:09 08:21 POC Glucose 275 H 192 H 163 H (70-105) <PRAVEENA PEGUERO - Last Filed: 12/13/19 14:58> Assessment and Plan I saw and evaluated the patient. I agree with the findings and the plan of care as documented in the Nurse Practitioner's~note, with the following corrections and additions. Negative for COVID 19 cont lasix iv, follow 2d echo being managed for Acute systolic CHF Objective - Constitutional Vitals: Vital Signs - 12hr 12/13/19 12/13/19 10:25 11:40 Temperature 98.4 F Pulse Rate 96 H 83 Respiratory 24 Rate Blood Pressure 141/78 182/99 O2 Sat by Pulse 97 Oximetry - Labs CBC & Chem 7: 12/12/19 05:22 12/12/19 05:22 Labs: Abnormal lab results 12/12/19 12/12/19 12/13/19 Range/Units 18:07 21:09 08:21 POC Glucose 275 H 192 H 163 H (70-105) Hemoglobin A1c (4-6) % 12/13/19 12/13/19 Range/Units 11:56 Unknown POC Glucose 177 H (70-105) Hemoglobin A1c 12.4 H (4-6) %
[2019-12-13] MEDS: INSULIN REGULAR, HUMAN 100 UNIT/ML 3ML VIAL SUB-Q SCH ×4 (10:23→22:56)
[2019-12-13] MEDS: CITALOPRAM 20 MG TAB PO SCH (10:24)
[2019-12-13] MEDS: LINAGLIPTIN 5 MG TAB PO SCH (10:25)
[2019-12-13] MEDS: carvediloL 6.25 MG TAB PO SCH ×2 (10:25→22:56)
[2019-12-13] MEDS: amLODIPine 10 MG TAB PO SCH (10:25)
[2019-12-13] MEDS: hydrALAZINE 25 MG TAB PO SCH ×2 (10:25→22:55)
[2019-12-13] MEDS: PANTOPRAZOLE 40 MG TAB PO SCH (10:25)
--- NOTE | 2019-12-13 10:52 | Consultation ---
History of Present Illness Consult date: 12/13/19 Consult reason: congestive heart failure History of present illness: 49-year-old female with a history of hypertension type 2 diabetes mellitus and congestive heart failure presenting with sciatic nerve pain shortness of breath with lower extremity edema. Past History Past Medical History: diabetes, heart failure, hypertension Past Surgical History: No surgical history Social history: alcohol abuse (occasional drinker) Medications and Allergies Allergies Allergy/AdvReac Type Severity Reaction Status Date / Time No Known Allergies Allergy Unverified 11/27/13 13:05 Home Medications Medication Instructions Recorded Confirmed Last Taken Type ALPRAZolam [Xanax TAB] 2 mg PO BID 02/14/16 12/12/19 12/11/19 History Citalopram [Celexa] 40 mg PO DAILY 02/14/16 12/12/19 12/11/19 History Insulin Glargine [Lantus VIAL] 32 unit SUB-Q QHS 02/14/16 12/12/19 12/05/19 H istory Omeprazole Magnesium [PriLOSEC Otc] 40 mg PO DAILY 02/14/16 12/12/19 12/11/19 History amLODIPine 10 mg PO DAILY 02/14/16 12/12/19 12/11/19 History hydrALAZINE [Apresoline TAB] 25 mg PO BID 02/14/16 12/12/19 12/11/19 History hydroCHLOROthiazide [HCTZ] 25 mg PO QDAY 02/14/16 12/12/19 12/11/19 History carvediloL [Coreg] 6.25 mg PO DAILY 12/23/18 12/12/19 12/11/19 History Metoprolol [Lopressor] 25 mg PO DAILY 12/12/19 12/12/19 12/11/19 History metFORMIN [Glucophage] 500 mg PO BID 12/12/19 12/12/19 12/11/19 History Active Meds: Active Medications Albuterol (Proventil) 2.5 mg IH Q4HRT PRN PRN Reason: Shortness Of Breath Last Admin: 12/13/19 08:19 Dose: 2.5 mg Documented by: Alprazolam (Xanax) 1 mg PO TID PRN PRN Reason: Anxiety Last Admin: 12/13/19 05:11 Dose: 1 mg Documented by: Amlodipine Besylate (Amlodipine) 10 mg PO DAILY [facility] Last Admin: 12/13/19 10:25 Dose: 10 mg Documented by: Carvedilol (Coreg) 6.25 mg PO BID [facility] Last Admin: 12/13/19 10:25 Dose: 6.25 mg Documented by: Citalopram Hydrobromide (Celexa) 40 mg PO DAILY [facility] Last Admin: 12/13/19 10:24 Dose: 40 mg Documented by: Furosemide (Lasix) 40 mg IV 0600,1800 [facility] Last Admin: 12/13/19 05:10 Dose: 40 mg Documented by: Hydralazine HCl (Apresoline) 25 mg PO BID [facility] Last Admin: 12/13/19 10:25 Dose: 25 mg Documented by: Insulin Glargine (Lantus) 25 units SUB-Q QHS [facility] Last Admin: 12/12/19 21:06 Dose: 25 units Documented by: Insulin Human Regular (Humulin R) 0 unit SUB-Q ACHS [facility]; Protocol Last Admin: 12/13/19 10:23 Dose: 3 unit Documented by: Labetalol HCl (Labetalol) 20 mg IV Q6H PRN PRN Reason: HYPERTENSION Linagliptin (Tradjenta) 5 mg PO QDAY [facility] Last Admin: 12/13/19 10:25 Dose: 5 mg Documented by: Oxycodone/Acetaminophen (Percocet 5/325) 1 tab PO Q6H PRN PRN Reason: Pain, Moderate (4-6) Last Admin: 12/13/19 05:10 Dose: 1 tab Documented by: Pantoprazole Sodium (Protonix) 40 mg PO DAILY [facility] Last Admin: 12/13/19 10:25 Dose: 40 mg Documented by: Pseudoephedrine/Acetam/Chlorphenir (Robitussin Ac) 5 ml PO Q6H PRN PRN Reason: Cough Last Admin: 12/12/19 21:09 Dose: 5 ml Documented by: Review of Systems Constitutional: no weight loss, no weight gain, no fever, no chills, no sweats, no anorexia, no fatigue, no weakness Ears, nose, mouth and throat: no ear pain, no ear discharge, no tinnitis, no decreased hearing, no nose pain, no nasal congestion, no nasal discharge Breasts: no deferred, no change in shape, no discharge, no pain, no skin changes Cardiovascular: orthopnea, edema, shortness of breath, dyspnea on exertion, no chest pain Respiratory: cough, no cough with sputum, no excessive sputum, no shortness of breath, no congestion Genitourinary Female: no dyspareunia, no dysmenorrhea, no pelvic pain, no flank pain, no menorrhagia, no dysuria Rectal: no pain, no incontinence, no bleeding Musculoskeletal: no neck stiffness, no neck pain, no shooting arm pain, no low back pain, no shooting leg pain, no leg numbness/tingling Integumentary: no deferred, no rash, no pruritis, no redness Neurological: no head injury, no transient paralysis, no paralysis, no weakness, no parathesias Psychiatric: no anxiety, no memory loss, no change in sleep habits Endocrine: no cold intolerance, no heat intolerance, no polyphagia, no excessive thirst, no polydipsia, no polyuria, no nocturia Hematologic/Lymphatic: no easy bruising, no easy bleeding Allergic/Immunologic: no urticaria, no allergic rhinitis Physical Examination Vital Signs Temp Pulse Resp BP Pulse Ox 98.4 F 101 H 20 192/103 91 12/12/19 04:37 12/12/19 04:37 12/12/19 04:37 12/12/19 04:37 12/12/19 04:37 General appearance: no acute distress HEENT: Positive: PERRL. Negative: Mucus Membranes Moist Neck: Positive: neck supple, trachea midline Cardiac: Positive: Regular Rate, S1/S2, PMI, Laterally Displaced Lungs: Positive: clear to auscultation, No Wheeze, Rales, Rhonchi Neuro: Positive: Grossly Intact Abdomen: Positive: Unremarkable Extremities: Absent: edema Results 12/12/19 05:22 12/12/19 05:22 - EKG Interpretation EKG: sinus rhythm EKG interpretations - Telemetry EKG Rhythm: Sinus Rhythm Assessment and Plan 1. Acute on chronic combined systolic and diastolic heart failure 2. Unspecified cardiomyopathy 3. Essential hypertension 4. Type 2 diabetes mellitus 5. Sciatic neuralgia. Plan. Nitrol ointment for pre-and afterload reduction antiplatelet treatment. Intravenous diuresing Echocardiogram to assess global and regional left ventricular function. Check TSH level
[2019-12-13] MEDS: NITROGLYCERIN 2% OINT 1 GM TP SCH ×2 (11:17→18:07)
--- NOTE | 2019-12-13 17:02 | Vascular Lab Report ---
DUPLEX DOPPLER LOWER EXTREMITY VEINS, BILATERAL INDICATION / CLINICAL INFORMATION: left leg pain. TECHNIQUE: Duplex doppler imaging was performed through the veins of both lower extremities using venous brandon haim and other maneuvers. COMPARISON: None available. FINDINGS: RIGHT COMMON FEMORAL VEIN: Negative. RIGHT FEMORAL VEIN: Negative. RIGHT POPLITEAL VEIN: Negative. RIGHT CALF VEINS: Negative. LEFT COMMON FEMORAL VEIN: Negative. LEFT FEMORAL VEIN: Negative. LEFT POPLITEAL VEIN: Negative. LEFT CALF VEINS: Negative. ADDITIONAL FINDINGS: None. IMPRESSION: 1. No sonographic evidence for DVT in either lower extremity. Signer Name: Dom Liu MD Signed: 12/13/2019 4:57 PM Workstation Name: [id number]
[2019-12-13] MEDS ORDERED: CYCLOBENZAPRINE 10 MG TAB PO PRN (17:32)
[2019-12-13] MEDS: hydroCHLOROthiazide 25 MG TAB PO SCH (18:07)
[2019-12-13] MEDS: GABAPENTIN 300 MG CAP PO SCH (21:31)
[2019-12-13] MEDS: guaiFENesin/CODEINE 100-10MG ORAL LIQD 5 ML PO PRN (21:45)
[2019-12-13] MEDS ORDERED: ACETAMINOPHEN 325 MG TAB PO PRN (21:48)
[2019-12-13] MEDS: INSULIN GLARGINE 100 UNITS/ML SUB-Q SCH (22:57)
[2019-12-14] MEDS: oxyCODONE /ACETAMINOPHEN 5-325MG TAB PO PRN (05:55)
[2019-12-14] MEDS: NITROGLYCERIN 2% OINT 1 GM TP SCH (06:54)
[2019-12-14] MEDS: FUROSEMIDE 40 MG/4 ML INJ IV SCH (06:54)
[2019-12-14] MEDS: INSULIN REGULAR, HUMAN 100 UNIT/ML 3ML VIAL SUB-Q SCH ×3 (07:30→11:30)
--- NOTE | 2019-12-14 09:48 | Progress Note ---
Assessment and Plan 1. Acute on chronic combined systolic and diastolic heart failure 2. Unspecified cardiomyopathy 3. Essential hypertension 4. Type 2 diabetes mellitus 5. Sciatic neuralgia. Plan. Nitrol ointment for pre-and afterload reduction antiplatelet treatment. Intravenous diuresing Echocardiogram to assess global and regional left ventricular function is still pending. TSH level is normal Subjective Date of service: 12/14/19 Interval history: No cardiac symptoms Objective Vital Signs Temp Pulse Resp BP Pulse Ox 12/14/19 06:54 78 88/50 12/14/19 06:30 97.7 F 78 16 88/50 94 12/14/19 05:55 18 12/13/19 22:56 98 H 179/89 12/13/19 22:55 98 H 179/89 12/13/19 22:53 98.8 F 98 H 20 179/89 92 12/13/19 22:15 3 L 12/13/19 21:00 98 H 12/13/19 17:46 98.2 F 89 22 156/87 98 12/13/19 11:40 98.4 F 83 24 182/99 97 12/13/19 10:25 96 H 141/78 - Physical Examination General: Appears Well, No Apparent Distress HEENT: Positive: PERRL. Negative: Mucus Membranes Moist Neck: Positive: neck supple, trachea midline Cardiac: Positive: Regular Rate, S1/S2, PMI, Dilated, Laterally Displaced. Negative: S3, S4 Lungs: Positive: clear to auscultation, No Wheeze, Rales, Rhonchi Neuro: Positive: Grossly Intact Abdomen: Positive: Unremarkable Extremities: Absent: edema
--- NOTE | 2019-12-14 09:53 | Progress Note ---
<CRISTIAN ARGUELLO - Last Filed: 12/14/19 09:54> Assessment and Plan - Patient Problems (1) Sciatica Status: Acute Plan to address problem: Pain management Bilateral leg US r/o dvt (2) Shortness of breath Status: Acute Plan to address problem: patient seen on room air-resolved Oxygen supplement PRN Sourcing Intern consult ECHO ordered-result pending (3) Chest pain Status: Acute Plan to address problem: ECHO-f/u with Patient denies cp today-reports left leg pain Pain management Sourcing Intern consult Will check us of lower estremity r/u DVT (4) Diabetes 1.5, managed as type 2 Status: Chronic Plan to address problem: Monitor blood sugar with SSI [id number] with result Scheduled lantus 25 units BID (5) Dyslipidemia Status: Chronic Plan to address problem: Resume home statin (6) Acute on chronic congestive heart failure Status: Acute Plan to address problem: continue cardioprotective measure-diuretic, subl. nitrites, ASA, statin, and oxygen supplement if needed elevated BNP Cardiology consult-f/u with recomendation Wafyo-wxi-ehetj interstatial pulmonary edema ECHO-result pending Subjective Interval history: Patient seen sitting at bedside. reviewed lab, mar, and V/S Reviewed specialist note and reces Nitrol ointment for pre-and afterload reduction, ASA and iv diuretics. Echocardiogram to assess global and regional left ventricular function. Checked Check TSH level-normal Objective - Constitutional Vitals: Vital Signs - 12hr 12/13/19 12/13/19 12/13/19 22:15 22:53 22:55 Temperature 98.8 F Pulse Rate 98 H 98 H Respiratory 3 L 20 Rate Blood Pressure 179/89 179/89 O2 Sat by Pulse 92 Oximetry 12/13/19 12/14/19 12/14/19 22:56 05:55 06:30 Temperature 97.7 F Pulse Rate 98 H 78 Respiratory 18 16 Rate Blood Pressure 179/89 88/50 O2 Sat by Pulse 94 Oximetry 12/14/19 06:54 Temperature Pulse Rate 78 Respiratory Rate Blood Pressure 88/50 O2 Sat by Pulse Oximetry General appearance: Present: no acute distress, well-nourished - EENT Eyes: PERRL, EOM intact ENT: hearing intact, clear oral mucosa Ears: bilateral: normal - Neck Neck: supple, normal ROM - Respiratory Respiratory effort: normal Respiratory: bilateral: CTA - Breasts Breasts: normal - Cardiovascular Rhythm: regular Heart Sounds: Present: S1 & S2. Absent: gallop, rub Extremities: pulses intact, No edema, normal color, Full ROM - Gastrointestinal General gastrointestinal: Present: soft, non-tender, non-distended, normal bowel sounds - Genitourinary Female genitourinary: normal - Integumentary Integumentary: clear, warm, dry - Musculoskeletal Musculoskeletal: 1, strength equal bilaterally - Neurologic Neurologic: moves all extremities - Psychiatric Psychiatric: memory intact, appropriate mood/affect, intact judgment & insight - Labs CBC & Chem 7: 12/12/19 05:22 12/12/19 05:22 Labs: Abnormal lab results 12/13/19 12/13/19 12/13/19 Range/Units 11:56 18:03 23:06 POC Glucose 177 H 213 H 198 H (70-105) Hemoglobin A1c (4-6) % 12/13/19 12/14/19 Range/Units Unknown 07:56 POC Glucose 245 H (70-105) Hemoglobin A1c 12.4 H (4-6) % <PRAVEENA PEGUERO - Last Filed: 12/17/19 00:23> Assessment and Plan I saw and evaluated the patient. I agree with the findings and the plan of care as documented in the Nurse Practitioner's~note. Subjective Date of service: 12/14/19 Objective - Labs CBC & Chem 7: 12/12/19 05:22 12/12/19 05:22
--- NOTE | 2019-12-14 09:59 | Discharge Summary ---
<PRAVEENA PEGUERO - Last Filed: 12/14/19 13:15> Providers - Providers Date of Admission: 12/12/19 10:11 Attending physician: PRAVEENA PEGUERO 12/12/19 16:01 Consult to Physician [CONS] Routine Comment: Consulting Provider: ONELIA GONZALES Physician Instructions: Reason For Exam: CHF Primary care physician: [facility] [employer] Hospitalization Condition: Stable Hospital course: I saw and evaluated the patient. I agree with the findings and the plan of care as documented in the Nurse Practitioner's~note, with the following corrections and additions. Discharge diagnosis: Acute CHF exacerbation with preserved EF HTN, uncontrolled morbid obesity Chest pain due to GERD Dyspnea, resolved Sciatica DM type 2 Disposition: DC- TO HOME OR SELFCARE Core Measure Documentation - Palliative Care Palliative Care/ Comfort Measures: Not Applicable - Core Measures Any of the following diagnoses?: heart failure - Heart Failure Discharge Requirements BREA/ARB for LVSD if EF <40%: Not Applicable Beta harish at discharge: Yes Exam - Constitutional Vitals: Temp Pulse Resp BP Pulse Ox 97.7 F 78 16 88/50 94 12/14/19 06:30 12/14/19 06:54 12/14/19 06:30 12/14/19 06:54 12/14/19 06:30 Plan Follow up with: LEXY MIUGEL MD [Primary Care Provider] - 3-5 Days MARIA ELENA MEEHAN MD [Staff Physician] - 7 Days Prescriptions: Insulin Glargine [Lantus VIAL] 32 unit SUB-Q QHS 30 Days amLODIPine 10 mg PO DAILY 30 Days #30 hydrALAZINE [Apresoline TAB] 25 mg PO BID #60 carvediloL [Coreg] 6.25 mg PO BID 30 Days #60 tablet Cyclobenzaprine [Flexeril 10 MG TAB] 10 mg PO Q8H PRN 14 Days #42 tablet PRN Reason: Muscle Spasm metFORMIN [Glucophage] 500 mg PO BID #60 hydroCHLOROthiazide [HCTZ] 25 mg PO QDAY #30 Omeprazole Magnesium [PriLOSEC Otc] 40 mg PO DAILY #30 <CRISTIAN ARGUELLO - Last Filed: 12/14/19 14:25> Providers - Providers Date of Admission: 12/12/19 10:11 Date of discharge: 12/14/19 Attending physician: PRAVEENA PEGUERO 12/12/19 16:01 Consult to Physician [CONS] Routine Comment: Consulting Provider: ONELIA GONZALES Physician Instructions: Reason For Exam: CHF Primary care physician: [employer] Hospitalization - Discharge Diagnoses (1) Sciatica Status: Acute Comment: patient advised to follow up with her PCP Bilateral leg US-negative for DVT (2) Shortness of breath Status: Acute Comment: Resolved (3) Chest pain Status: Acute Comment: Resolved (4) Diabetes 1.5, managed as type 2 Status: Chronic Comment: Blood sugar stable Discussed medication compliance and follow up appointment Discussed lifestyle modification-avoidance of fatty foods and foods rich in concentrated sweetners (5) Dyslipidemia Status: Chronic (6) Acute on chronic congestive heart failure Status: Acute Comment: Condition has improved-patient stable for discharge ECHO done-pending result Dr Meehan was consulted-saw patient patient advised to follow up with dr Meehan upholsterer helper out patient for further care and management Core Measure Documentation - Palliative Care Palliative Care/ Comfort Measures: Not Applicable - Core Measures Any of the following diagnoses?: none Exam - Constitutional Vitals: Temp Pulse Resp BP Pulse Ox 97.7 F 78 16 88/50 94 12/14/19 06:30 12/14/19 06:54 12/14/19 06:30 12/14/19 06:54 12/14/19 06:30 General appearance: Present: no acute distress, well-nourished - EENT Eyes: Present: PERRL ENT: hearing intact, clear oral mucosa - Neck Neck: Present: supple, normal ROM - Respiratory Respiratory effort: normal Respiratory: bilateral: CTA - Cardiovascular Heart rate: 76 Heart Sounds: Present: S1 & S2. Absent: rub, click - Extremities Extremities: pulses symmetrical, No edema Peripheral Pulses: within normal limits - Abdominal General gastrointestinal: Present: soft, non-tender, non-distended, normal bowel sounds Female genitourinary: Present: normal - Integumentary Integumentary: Present: clear, warm, dry - Musculoskeletal Musculoskeletal: gait normal, strength equal bilaterally - Psychiatric Psychiatric: appropriate mood/affect, intact judgment & insight - Neurologic Neurologic: CNII-XII intact, moves all extremities Plan Diet: low fat, low cholesterol, low salt, diabetic, low carbohydrate Special Instructions: record blood sugar diary, smoking cessation
[2019-12-14] MEDS: PANTOPRAZOLE 40 MG TAB PO SCH (10:30)
[2019-12-14] MEDS: hydrALAZINE 25 MG TAB PO SCH (10:30)
[2019-12-14] MEDS: hydroCHLOROthiazide 25 MG TAB PO SCH (10:31)
[2019-12-14] MEDS: GABAPENTIN 300 MG CAP PO SCH (10:31)
[2019-12-14] MEDS: CITALOPRAM 20 MG TAB PO SCH (10:31)
[2019-12-14] MEDS: amLODIPine 10 MG TAB PO SCH (10:31)
[2019-12-14] MEDS: carvediloL 6.25 MG TAB PO SCH (10:32)
[2019-12-14] MEDS: LINAGLIPTIN 5 MG TAB PO SCH (10:33)
[2019-12-14 14:49] VITALS: BP 119/75
== END 2019-12-14 15:00 | disposition home or self-care (01) | DRG 391 ==
LOC: ED 04:21 → 4A 10:11 → 3A 23:26
PROVIDERS: ADMIT Internal Medicine; ATTEND Internal Medicine
DX: K21.9 Gastro-esophageal reflux disease without esophagitis (principal); I50.43 Acute on chronic combined systolic (congestive) and diastolic (congestive) heart failure; I42.9 Cardiomyopathy, unspecified; I11.0 Hypertensive heart disease with heart failure; E66.01 Morbid (severe) obesity due to excess calories; E11.9 Type 2 diabetes mellitus without complications; M54.30 Sciatica, unspecified side; E78.5 Hyperlipidemia, unspecified; F32.9 Major depressive disorder, single episode, unspecified; F41.9 Anxiety disorder, unspecified; F10.10 Alcohol abuse, uncomplicated; Z72.89 Other problems related to lifestyle; Z79.899 Other long term (current) drug therapy; Z68.37 Body mass index [BMI] 37.0-37.9, adult; Z79.4 Long term (current) use of insulin; Z03.818 Encounter for observation for suspected exposure to other biological agents ruled out; Z90.711 Acquired absence of uterus with remaining cervical stump
CPT/HCPCS: 36415; 70450; 71046; 80053; 81001; 82962; 83036; 83880; 84443; 85025; 93306; 93970; 94640; G0378; J1815; J1885; J1940; J2270; J2405; J3010; U0003-CS

== ENCOUNTER 2021-09-08 02:39 | Emergency (ER) | payer SELFPAY ==
[2021-09-08 03:06] VITALS: BP 146/72
--- NOTE | 2021-09-09 09:58 | Electrocardiograph Report ---
[facility] Test Date: 2021-09-08 Test Time: 03:10:02 Pat Name: RUDY MEZA Department: Room: Gender: F [employer] Matron: MORGAN : 1970 Requested By: ED DOC Order Number: [id number] Reading MD: Brian Castellano Measurements Intervals [place] Rate: 87 P: 30 VT: 142 QRS: -18 QRSD: 92 T: 138 QT: 383 QTc: 462 Interpretive Statements Sinus rhythm Abnormal T, consider ischemia, lateral leads No previous ECG available for comparison Electronically Signed On 09-09-2021 9:58:10 EDT by Brian Castellano
== END 2021-09-08 09:00 | disposition left against medical advice (07) ==
LOC: ED 02:39
DX: M79.605 Pain in left leg (principal); Z53.21 Procedure and treatment not carried out due to patient leaving prior to being seen by health care provider
CPT/HCPCS: 93005

== ENCOUNTER 2021-09-30 02:42 | Emergency (ER) | payer MEDICARE ==
[2021-09-30 08:44] VITALS: BP 189/103
[2021-09-30] MEDS ORDERED: KETOROLAC 30 MG/1 ML INJ IM ONE (09:04)
--- NOTE | 2021-09-30 09:10 | Emergency Department Report ---
ED Extremity Problem HPI - General Chief complaint: Extremity Problem,Nontraumatic Stated complaint: BODY PAIN, DIABETES Source: patient Mode of arrival: Wheelchair Limitations: No Limitations - History of Present Illness Initial comments: 51-year-old female presents to the ED complaining of sciatica pain x2 days. Patient states she has a history of sciatica pain and currently awaiting pain management and orthopedic. Patient states she also has history of diabetes and hypertension. Patient request for some hydrocodone as she wait on pain management. Patient denies any prior medication to ED arrival. Patient denies any dysuria, fever chills or numbness or tingling. Patient denies any trauma. Patient is alert and oriented x3. Patient is ambulatory. Patient has no obvious trauma. No distracting injury noted. Onset/Timin Severity scale (0 -10): 10 - Related Data Home Medications Medication Instructions Recorded Confirmed Last Taken Citalopram [Celexa] 40 mg PO DAILY 02/14/16 12/12/19 12/11/19 Previous Rx's Medication Instructions Recorded Last Taken Type Acetaminophen [Acetaminophen TAB] 650 mg PO Q6H PRN tablet 12/14/19 Unknown Rx Cyclobenzaprine [Flexeril 10 MG 10 mg PO Q8H PRN 14 Days #42 tablet 12/14/19 Unknown Rx TAB] Gabapentin 300 mg PO BID capsule 12/14/19 Unknown Rx Insulin Glargine [Lantus VIAL] 32 unit SUB-Q QHS 30 Days 12/14/19 Unknown Rx Insulin Regular, Human [HumuLIN R] 0 unit SUB-Q ACHS vial 12/14/19 Unknown Rx Linagliptin [Tradjenta] 5 mg PO QDAY tablet 12/14/19 Unknown Rx Omeprazole Magnesium [PriLOSEC Otc] 40 mg PO DAILY #30 12/14/19 Unknown Rx amLODIPine 10 mg PO DAILY 30 Days #30 12/14/19 Unknown Rx carvediloL [Coreg] 6.25 mg PO BID 30 Days #60 tablet 12/14/19 Unknown Rx guaiFENesin/CODEINE [Robitussin AC] 5 ml PO Q6H PRN oral.liqd 12/14/19 Unknown Rx hydrALAZINE [Apresoline TAB] 25 mg PO BID #60 12/14/19 Unknown Rx hydroCHLOROthiazide [HCTZ] 25 mg PO QDAY #30 12/14/19 Unknown Rx metFORMIN [Glucophage] 500 mg PO BID #60 12/14/19 Unknown Rx oxyCODONE /ACETAMINOPHEN [Percocet 1 tab PO Q6H PRN tablet 12/14/19 Unknown Rx 5/325 mg] traMADoL [Ultram] 50 mg PO Q6HR PRN 3 Days #12 tablet 09/30/21 Unknown Rx Allergies Allergy/AdvReac Type Severity Reaction Status Date / Time No Known Allergies Allergy Verified 09/08/21 03:03 ED Review of Systems ROS: Stated complaint: BODY PAIN, DIABETES Other details as noted in HPI Constitutional: denies: chills, fever Eyes: denies: eye pain, eye discharge, vision change ENT: denies: ear pain, throat pain Respiratory: denies: cough, shortness of breath, wheezing Cardiovascular: denies: chest pain, palpitations Endocrine: no symptoms reported Gastrointestinal: denies: abdominal pain, nausea, diarrhea Genitourinary: denies: urgency, dysuria, discharge Musculoskeletal: denies: back pain, joint swelling, arthralgia Skin: denies: rash, lesions Neurological: denies: headache, weakness, paresthesias Psychiatric: denies: anxiety, depression Hematological/Lymphatic: denies: easy bleeding, easy bruising ED Past Medical Hx - Past Medical History Hx Hypertension: Yes Hx Congestive Heart Failure: No Hx Diabetes: Yes Hx GERD: Yes Hx Seizures: Yes Hx Psychiatric Treatment: Yes (anxiety/depression) Hx Asthma: No Hx COPD: No Hx HIV: No Additional medical history: peptic ulcer - Surgical History Additional Surgical History: c section x 1, partial hysterectomy - Social History Smoking Status: Never Smoker Substance Use Type: None - Medications Home Medications: Home Medications Medication Instructions Recorded Confirmed Last Taken Type Citalopram [Celexa] 40 mg PO DAILY 02/14/16 12/12/19 12/11/19 History Acetaminophen [Acetaminophen TAB] 650 mg PO Q6H PRN tablet 12/14/19 Unknown Rx Cyclobenzaprine [Flexeril 10 MG 10 mg PO Q8H PRN 14 Days #42 tablet 12/14/19 Unknown Rx TAB] Gabapentin 300 mg PO BID capsule 12/14/19 Unknown Rx Insulin Glargine [Lantus VIAL] 32 unit SUB-Q QHS 30 Days 12/14/19 Unknown Rx Insulin Regular, Human [HumuLIN R] 0 unit SUB-Q ACHS vial 12/14/19 Unknown Rx Linagliptin [Tradjenta] 5 mg PO QDAY tablet 12/14/19 Unknown Rx Omeprazole Magnesium [PriLOSEC Otc] 40 mg PO DAILY #30 12/14/19 Unknown Rx amLODIPine 10 mg PO DAILY 30 Days #30 12/14/19 Unknown Rx carvediloL [Coreg] 6.25 mg PO BID 30 Days #60 tablet 12/14/19 Unknown Rx guaiFENesin/CODEINE [Robitussin AC] 5 ml PO Q6H PRN oral.liqd 12/14/19 Unknown Rx hydrALAZINE [Apresoline TAB] 25 mg PO BID #60 12/14/19 Unknown Rx hydroCHLOROthiazide [HCTZ] 25 mg PO QDAY #30 12/14/19 Unknown Rx metFORMIN [Glucophage] 500 mg PO BID #60 12/14/19 Unknown Rx oxyCODONE /ACETAMINOPHEN [Percocet 1 tab PO Q6H PRN tablet 12/14/19 Unknown Rx 5/325 mg] traMADoL [Ultram] 50 mg PO Q6HR PRN 3 Days #12 tablet 09/30/21 Unknown Rx ED Physical Exam - General Limitations: No Limitations General appearance: alert, in no apparent distress - Head Head exam: Present: atraumatic, normocephalic - Eye Eye exam: Present: normal appearance - ENT ENT exam: Present: mucous membranes moist - Neck Neck exam: Present: normal inspection - Respiratory Respiratory exam: Present: normal lung sounds bilaterally. Absent: respiratory distress - Cardiovascular Cardiovascular Exam: Present: regular rate, normal rhythm. Absent: systolic murmur, diastolic murmur, rubs, gallop - GI/Abdominal GI/Abdominal exam: Present: soft, normal bowel sounds - Extremities Exam Extremities exam: Present: normal inspection - Back Exam Back exam: Present: normal inspection - Neurological Exam Neurological exam: Present: alert, oriented X3 - Psychiatric Psychiatric exam: Present: normal affect, normal mood - Skin Skin exam: Present: warm, dry, intact, normal color. Absent: rash ED Course Vital Signs 09/30/21 09/30/21 09/30/21 03:06 08:40 08:44 Temperature 98.4 F 97.8 F Pulse Rate 77 83 Respiratory 18 18 Rate Blood Pressure 162/89 Blood Pressure 183/137 189/103 [Left] O2 Sat by Pulse 94 99 Oximetry ED Medical Decision Making - Medical Decision Making 51-year-old female presents to the ED complaining of sciatica pain x2 days. Patient states she has a history of sciatica pain and currently awaiting pain management and orthopedic. Patient states she also has history of diabetes and hypertension. Patient request for some hydrocodone as she wait on pain management. Patient denies any prior medication to ED arrival. Patient denies any dysuria, fever chills or numbness or tingling. Patient denies any trauma. Patient is alert and oriented x3. Patient is ambulatory. Patient has no obvious trauma. No distracting injury noted. Rechecked the patient is resting quietly quietly and comfortable and feeling better. I discussed the results of diagnostic study, my clinical impression and the plan for further treatment with the patient. Patient agrees with plan and discharge at this present time. All question addressed. I have given the patient instruction regarding a diagnosis ,expectation ,follow- up and return precaution. I explained to the patient that emergent condition may arise and to return to the ED for new worsen and any new persisting condition. I have explained the importance of following up with the primary care physician or referral physician listed below has instructed. The patient verbalized understanding of discharge instruction. Critical care attestation.: If time is entered above; I have spent that time in minutes in the direct care of this critically ill patient, excluding procedure time. ED Disposition Clinical Impression: Back pain with sciatica Disposition: HOME / SELF CARE / HOMELESS Is pt being admited?: No Does the pt Need Aspirin: No Condition: Stable Instructions: Sciatica, [id number] Additional Instructions: Keep appointment with pain management Return to ED for any worsening symptoms Prescriptions: traMADoL [Ultram] 50 mg PO Q6HR PRN 3 Days #12 tablet PRN Reason: Pain Referrals: PRIMARY CARE, [Primary Care Provider] - 3-5 Days [facility] [Provider Group] - 3-5 Days Forms: Work/School Release Form(ED) Time of Disposition: 09:12
== END 2021-09-30 09:41 | disposition home or self-care (01) ==
LOC: ED 02:42
DX: M54.30 Sciatica, unspecified side (principal); M54.9 Dorsalgia, unspecified
CPT/HCPCS: 96372; 99282; J1885

== ENCOUNTER 2021-12-23 18:51 | Emergency (ER) | payer MEDICARE | END 2021-12-23 23:26 | disposition left against medical advice (07) | LOC: ED 18:51 | DX: R06.02 Shortness of breath (principal); Z53.21 Procedure and treatment not carried out due to patient leaving prior to being seen by health care provider ==